=== PATIENT | female | born 1940 | race Caucasian/White ===

== ENCOUNTER 2021-02-05 11:02 | Day surgery (SDCO) | payer OTHER ==
[~2021-02-05 11:02] MED LIST: BENTYL10 MG PO; KRILL OIL 1,001 EAC1 PO; LEVOXYL100 MCG PO; PROBIOTIC1 EAC1 PO; PROZAC20 MG PO
[2021-02-05 11:40] LABS: BASOPHIL 0.6 % (0-2); EOSINOPHIL 8.3 % (0-7); HCT 44.2 % (37.0-47.0); HGB 14.6 g/dl (12.5-16.0); LYMPHOCYTE 18.1 % (15-48); MCH 31.1 pg (25.0-31.0); MCV 94.2 fL (78.0-100.0); MONOCYTE 5.7 % (0-12); NEUTROPHIL 66.6 % (41-80); NRBC 0; PLT 342 K/uL (150-400); RBC 4.69 M/uL (4.20-5.40); RDW 13.7 % (11.5-14.0); WBC 9.5 K/uL (4.0-10.5)
[2021-02-05 11:44] LABS: INR 1.01 (0.9-1.2); PROTHROMBIN TIME 12.6 SECONDS (11.4-13.6); PTT 32.3 SECONDS (22.2-34.7)
[2021-02-05 11:50] LABS: ALBUMIN 3.7 g/dL (3.4-5.0); BILIRUBIN - TOTAL 0.5 mg/dL (0.2-1.0); BUN/CREAT RATIO (CALC) 25.8 RATIO; CREATININE 0.89 mg/dL (0.51-0.95); POTASSIUM 4.6 mmol/L (3.5-5.1); TOTAL PROTEIN 7.7 g/dL (6.4-8.2)
[2021-02-05 18:51] LABS: FT4 (FREE T4) 1.2 ng/dL (0.76-1.46)
[2021-02-05] MEDS ORDERED: SYNTHROID88 MCG PO (18:58)
[2021-02-05] MEDS ORDERED: PROZAC20 MG PO (18:59)
[2021-02-05] MEDS ORDERED: XANAX0.25 M1 PO (19:00)
[2021-02-06 06:26] LABS: EOSINOPHIL 14.3 % (0-7); HGB 13.7 g/dl (12.5-16.0); MCH 31.1 pg (25.0-31.0); MCHC 33.4 g/dL (32.0-36.0); MCV 93.2 fL (78.0-100.0); MPV 8.9 fL (6.0-9.5); NEUTROPHIL 53.3 % (41-80); NRBC 0; PLT 299 K/uL (150-400); RDW 13.4 % (11.5-14.0); WBC 8.4 K/uL (4.0-10.5)
[2021-02-06 06:35] LABS: ALBUMIN 3.2 g/dL (3.4-5.0); BILIRUBIN - TOTAL 0.4 mg/dL (0.2-1.0); CREATININE 0.87 mg/dL (0.51-0.95); GLOBULIN (CALCULATION) 3.4 g/dL; MAGNESIUM 1.9 mg/dL (1.8-2.4); POTASSIUM 4.2 mmol/L (3.5-5.1); TOTAL PROTEIN 6.6 g/dL (6.4-8.2)
[2021-02-06] MEDS ORDERED: ASPIRIN EC81 MG PO (14:39)
== END 2021-02-06 15:38 | disposition home or self-care (01) ==
LOC: FER 11:02 → FTCU 15:42
PROVIDERS: Emergency Medicine; Nurse Practitioner; ADMIT Internal Medicine
DX: I20.0 Unstable angina (principal); I10 Essential (primary) hypertension; E78.5 Hyperlipidemia, unspecified; R55 Syncope and collapse; E03.9 Hypothyroidism, unspecified; I35.1 Nonrheumatic aortic (valve) insufficiency; Z85.3 Personal history of malignant neoplasm of breast; Z79.899 Other long term (current) drug therapy; Z88.0 Allergy status to penicillin; Z88.2 Allergy status to sulfonamides; Z88.5 Allergy status to narcotic agent; Z20.822 Contact with and (suspected) exposure to COVID-19
CPT/HCPCS: 36415; 71045; 80053; 80061; 83735; 83880; 84439; 84443; 84484; 85025; 85610; 85730; 93005; 94760; 94762; G0378; J0360; J0743; U0002